=== PATIENT | female | born 2000 | race African-American/Black ===

== ENCOUNTER 2021-09-01 01:46 | Emergency (ER) | payer OTHER ==
[~2021-09-01] VITALS: Ht 172.7 cm; Wt 97.7 kg
[2021-09-01 02:22] VITALS: BP 120/71
[2021-09-01] MEDS ORDERED: PERTUSS(ACELL),DIPH,TET VAC/PF 0.5 ML SYRINGE IM. ONE ×2 (03:00→03:12)
[2021-09-01] MEDS ORDERED: ACETAMINOPHEN 325 MG TABLET PO ONE (03:00)
== END 2021-09-01 05:05 | disposition home or self-care (01) ==
LOC: EMS 01:48
DX: S80.01XA Contusion of right knee, initial encounter (principal); S50.311A Abrasion of right elbow, initial encounter; W17.89XA Other fall from one level to another, initial encounter; Y93.39 Activity, other involving climbing, rappelling and jumping off; Y92.89 Other specified places as the place of occurrence of the external cause; Y99.8 Other external cause status
CPT/HCPCS: 29530; 90471; 90715; 99284